=== PATIENT | female | born 2000 | race Caucasian/White ===

== ENCOUNTER 2023-05-29 21:08 | Emergency (ER) | payer SELFPAY ==
[2023-05-29 22:16] LABS: #Eosinphils 0.1 10x3/uL (0.0-0.5); #Monocytes 0.7 10x3/uL (0.0-1.1); %Basophils 0.4 % (0.0-2.0); %Lymphocytes 12.2 % (18.0-47.0); %Monocytes 6.9 % (0.0-10.0); %Neutrophils 79.2 % (40.0-75.0); Hematocrit 39.5 % (34.9-44.5); Hemoglobin 12.8 g/dL (12.0-15.5); Mean Corpuscular HGB CONC 32.4 g/dL (32.0-36.0); Mean Corpuscular Hemoglobin 25.9 pg (27.0-33.0); Mean Corpuscular Volume 79.8 fl (81.6-98.3); Mean Platelet Volume 9.1 fl (7.4-10.4); Platelet Count 273 10x3/uL (150-450); Red Blood Cell (RBC) Count 4.95 10x6/uL (3.90-5.03)
[2023-05-29 22:25] LABS: ALT (SGPT) 17 U/L (8-55); AST (SGOT) 17 U/L (5-34); Albumin 4.2 g/dL (3.5-5.0); Alkaline Phosphatase 74 U/L (40-110); Anion Gap 15 mmol/L (10-20); BUN (Urea Nitrogen) 12 mg/dL (7.0-18.7); Bilirubin, Total 0.3 mg/dL (0.2-1.2); Calc. Creatinine Clearance 0 mL/min (70-130); Calcium 8.8 mg/dL (7.8-10.44); Carbon Dioxide 21 mmol/L (22-29); Chloride 106 mmol/L (98-107); Estimated GFR 110; Globulin 3.6 g/dL (2.4-3.5); Glucose 115 mg/dL (70-105); Potassium 3.6 mmol/L (3.5-5.1); Protein, Total 7.8 g/dL (6.0-8.3); Sodium 138 mmol/L (136-145)
[2023-05-29] MEDS ORDERED: Ondansetron PF 4 MG/2 ML Vial ONE (23:27)
[2023-05-30] MEDS ORDERED: Lorazepam 2 MG/ML VIAL ONE (01:26)
[2023-05-30] MEDS ORDERED: Iopamidol 370 76% 100 ML VIAL ONE (08:59)
== END 2023-05-30 04:38 | disposition home or self-care (01) ==
LOC: CSHERS 21:08
DX: J18.0 Bronchopneumonia, unspecified organism (principal); J45.909 Unspecified asthma, uncomplicated
CPT/HCPCS: 71045; 71275; 80053; 85025; 85379; 93005; 96361; 96374; 96375; J2060; J2405; Q9967

== ENCOUNTER 2023-09-30 20:04 | Emergency (ER) | payer OTHER, SELFPAY | END 2023-09-30 21:00 | disposition home or self-care (01) | LOC: CSHERS 20:04 | DX: O99.891 Other specified diseases and conditions complicating pregnancy (principal); M54.50 Low back pain, unspecified; Z3A.08 8 weeks gestation of pregnancy | CPT/HCPCS: 99283 ==